=== PATIENT | female | born 1955 | race Caucasian/White ===

== ENCOUNTER → 2017-05-06 | Outpatient (CLI) | payer OTHER ==
--- NOTE | 2017-05-08 19:29 | RADIOLOGY REPORT PS360 ---
DIG MAMM-SCREEN JOS EMARIA W/CAD CAD Screening COMPARISON: Digital mammograms 04/30/2016 and 04/28/2015 INDICATION: There is a history of breast cancer patient's cousin diagnosed after menopause. There is been previous biopsy right breast for benign disease. TECHNIQUE: Standard CC and MLO images were obtained. R2 CAD reviewed. FINDINGS: Moderate fibroglandular densities are seen in the central portions of both breast. There is minimal post biopsy scarring near the biopsy clip right breast. There is a mole marker left breast. There is no suspicious lesion and no suspicious microcalcifications. IMPRESSION: Stable exam with no suspicious lesion seen recommend yearly follow-up BI-RADS CATEGORY: 2_Benign RECOMMENDED FOLLOWUP: 12M 12 MONTH FOLLOW-UP (A letter has been sent to the patient regarding results of the study.)
== END ==
LOC: RAD 08:16
DX: Z12.31 Encounter for screening mammogram for malignant neoplasm of breast (principal)
CPT/HCPCS: G0202